=== PATIENT | female | born 1975 | race Caucasian/White ===

== ENCOUNTER 2022-05-20 11:04 | Emergency (ER) | payer BC ==
[~2022-05-20] VITALS: Ht 165.1 cm; Wt 92.1 kg
[2022-05-20 11:13] VITALS: BP 109/68
--- NOTE | 2022-05-20 11:32 | NUR ---
pt in room 3, c/o right ankle pain 01/21, has splint in place, getting xr done. o2 sat 90 % at ra, 97% at 2 l/m via nc, sr up times 2
[2022-05-20] MEDS ORDERED: LORazepam 2 MG/ML VIAL IVP ONE (12:05)
[2022-05-20] MEDS ORDERED: ONDANSETRON 4 MG/2 ML VIAL IVP ONE (12:05)
[2022-05-20] MEDS ORDERED: MORPHINE SULFATE 4 MG/ML SYR IVP ONE (12:05)
[2022-05-20] MEDS ORDERED: NACL 0.9% 1,000 ML IV ONE (12:05)
--- NOTE | 2022-05-20 12:16 | NUR ---
medicated for right ankle pain as ordered, will get ankle reduced, n/c intact sl patent rac
--- NOTE | 2022-05-20 12:27 | NUR ---
morphine and zofran given, + pain mild relief, 02/21
--- NOTE | 2022-05-20 13:08 | NUR ---
short leg posterior applied to r lower leg. sapna wrap x 2. + cms
[2022-05-20] MEDS ORDERED: TRAM-748 PO (13:55)
--- NOTE | 2022-05-20 14:40 | NUR ---
PT WAS GIVEN CRUTCHES AND RETURNED SAFE USE OF DEMONSTRATION.
[2022-05-20 14:45] VITALS: BP 107/69
--- NOTE | 2022-05-20 14:45 | NUR ---
Patient discharged with v/s stable. Written and verbal after care instructions ABOUT ANKLE FRACTURE given and explained. Patient alert, oriented and verbalized understanding of instructions. Wheel Chair Assisted with to car. All questions addressed prior to discharge. ID band removed. Patient advised to follow up with PMD. Rx of ULTRAM given. Patient educated on indication of medication including possible reaction and side effects. Opportunity to ask questions provided and answered.
== END 2022-05-20 14:45 | disposition home or self-care (01) ==
LOC: MED 11:04
DX: S82.391A Other fracture of lower end of right tibia, initial encounter for closed fracture (principal); S82.831A Other fracture of upper and lower end of right fibula, initial encounter for closed fracture; Z88.5 Allergy status to narcotic agent; Z79.899 Other long term (current) drug therapy; X58.XXXA Exposure to other specified factors, initial encounter; Y93.01 Activity, walking, marching and hiking; Y92.89 Other specified places as the place of occurrence of the external cause; Y99.8 Other external cause status
CPT/HCPCS: 27788; 27825; 73600; 96361; 96374; 96375; 99285; J2060; J2270; J2405; Q0092; J7030